=== PATIENT | female | born 1995 | race African-American/Black ===

== ENCOUNTER 2016-11-26 23:57 | Emergency (ER) | payer OTHER ==
[~2016-11-26] VITALS: Ht 172.7 cm; Wt 52.6 kg
[~2016-11-26 23:57] MED LIST: BACTRIM DS TAB1 EACH PO; PHENAZOPYRIDIN200 M2 PO
[2016-11-27 00:44] LABS: URINE BILIRUBIN NEGATIVE (Negative); URINE BLOOD 3+ (Negative); URINE COLOR YELLOW; URINE GLUCOSE-RANDOM* NEGATIVE (Negative); URINE KETONES TRACE (Negative); URINE LEUKOCYTES-REFLEX NEGATIVE (Negative); URINE PROTEIN (DIPSTICK) 1+ (Negative); URINE UROBILINOGEN 0.2 E.U./dl (0.2-1.0)
[2016-11-27 01:04] LABS: SQUAMOUS >10 Many /LPF (0-3)
[2016-11-27 01:05] LABS: CASTS None Seen /LPF (None Seen); CRYSTALS None Seen /LPF (None Seen); URINE WBC-REFLEX 0-5 Rare /HPF (0-5)
[2016-11-27] MEDS ORDERED: FLAGYL500 MG PO (02:01)
[2016-11-27 02:21] VITALS: BP 98/60
[2016-11-28 19:12] LABS: CHLAMYDIA TRACHOMATIS-PCR Negative (Negative); NEISSERIA GONORRHEA-PCR Negative (Negative)
== END 2016-11-27 02:22 | disposition home or self-care (01) ==
LOC: ER 23:57
PROVIDERS: Emergency Medicine
DX: N93.8 Other specified abnormal uterine and vaginal bleeding (principal); N76.0 Acute vaginitis; B96.89 Other specified bacterial agents as the cause of diseases classified elsewhere